=== PATIENT | female | born 1985 | race Caucasian/White ===

== ENCOUNTER → 2016-05-20 | Outpatient (CLI) | payer BC ==
--- NOTE | ~2016-05-20 | CR181 ---
[facility] A Service of [facility] RADIOLOGY TEXT RESULTS PATIENT: KOBI STUART LOCATION: [facility] : [birth year] UNIT #: [id number] AGE: [address]: Robin Luo MD SEX: F ORDER DR: [id number] [facility] [address] [place], [place] [address] [id number] O MR#: [id number] Acc #: [id number] NAME: KOBI STUART : 1985 SEX: F STUDY DATE/TIME: 05/20/2016 7:29 UNIT: [facility] ROOM: STUDY DESCRIPTION: CR Lumbar Spine 2 or 3 Views Attending Physician: Robin Luo M.D. Ordering Physician: Robin Luo M.D. Primary Care Physician: Primary Care Physician No MEDICAL IMAGING REPORT This report is preliminary unless electronic signature is present EXAM Lumbar spine series 05/20/2016. HISTORY 31-year-old female complaining of new onset low back pain today. TECHNIQUE Three-view lumbar spine series. FINDINGS No fracture or other acute osseous abnormality. Mild degenerative disc space narrowing at L5-S1. Advanced lower lumbar degenerative facet arthropathy, greater on the left. Slight anterolisthesis at L5-S1. IMPRESSION 1. No acute osseous abnormality. 2. Mild degenerative disc space narrowing L5-S1. 3. Advanced lower lumbar degenerative facet arthropathy. Slight anterolisthesis at L5-S1. Dictated by... Jef Bruce M.D. THIS IS AN ELECTRONICALLY VERIFIED REPORT Jef Bruce M.D. at 05/20/2016 3:07 PM JAMMIE/lillian TD: 05/20/2016 14:23 JOB #: [id number] MEDICAL IMAGING REPORT [facility] A Service [facility] RADIOLOGY TEXT RESULTS PATIENT: KOBI STUART LOCATION: [facility] : 81 UNIT #: [id number] AGE: [address]: Robin Luo MD SEX: F ORDER DR: COPY
== END | disposition home or self-care (01) ==
LOC: CRAD 07:16
DX: S39.012A Strain of muscle, fascia and tendon of lower back, initial encounter (principal); M51.37 Other intervertebral disc degeneration, lumbosacral region; M47.816 Spondylosis without myelopathy or radiculopathy, lumbar region; M43.17 Spondylolisthesis, lumbosacral region
CPT/HCPCS: 72100